=== PATIENT | female | born 2005 | race African-American/Black ===

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

== ENCOUNTER 2025-04-19 10:16 | Emergency (ER) | payer OTHER, SELFPAY ==
[2025-04-19] MEDS ORDERED: Acetaminophen 500 MG TAB ONE (10:50)
== END 2025-04-19 11:50 | disposition home or self-care (01) ==
LOC: ERS 10:16
DX: J10.1 Influenza due to other identified influenza virus with other respiratory manifestations (principal); E11.9 Type 2 diabetes mellitus without complications; F17.290 Nicotine dependence, other tobacco product, uncomplicated
CPT/HCPCS: 71046; 87081; 87428; 87430